=== PATIENT | female | born 1965 | race Caucasian/White ===

== ENCOUNTER 2018-11-23 19:14 | Emergency (ER) | payer BC ==
[2018-11-23] MEDS ORDERED: Lidocaine 2% VISCOUS* 15 ML UDC PO ONE (20:11)
[2018-11-23] MEDS ORDERED: Al Hydrox/Mg Hydrox/Simet LIQ* 30 ML UDC PO ONE (20:11)
--- NOTE | 2018-11-23 20:14 | ED ---
HPI Chest Pain - HPI Summary HPI Summary: Pt is a 53 y/o F presenting to the ED with a chief complaint of chest pain onset 1830 today toward the epigastric region, more so on the L side than R, and it slightly radiates to her back. She reports nausea. She denies vomiting. She tried monet seltzer which did not help. She denies smoking and fhx of cardiac issues. - History of Current Complaint Chief Complaint: EDChestPainROMI Time Seen by Provider: 11/23/18 20:01 Hx Obtained From: Patient Onset/Duration: Started Hours Ago, Still Present Timing: Constant, Lasting Hours Initial Severity: Severe Current Severity: Severe Pain Intensity: 8 Pain Scale Used: 0-10 Numeric Chest Pain Location: Lower Sternal Chest Pain Radiates: Yes Chest Pain Radiates To:: Back Character: Burning Aggravating Factor(s): Nothing Alleviating Factor(s): Nothing Associated Signs and Symptoms: Positive: Chest Pain, Nausea, Back Pain. Negative: Vomiting - Allergy/Home Medications Allergies/Adverse Reactions: Allergies Allergy/AdvReac Type Severity Reaction Status Date / Time No Known Allergies Allergy Verified 11/23/18 19:24 Home Medications: Home Medications ARIPiprazole [Aripiprazole] 11/23/18 [History] FLUoxetine CAP* [Prozac CAP*] 11/23/18 [History] Montelukast Sodium 11/23/18 [History Confirmed 11/23/18] PMH/Surg Hx/FS Hx/Imm Hx Previously Healthy: Yes Endocrine/Hematology History: Denies: Hx Diabetes Cardiovascular History: Denies: Hx Hypertension Infectious Disease History: No Infectious Disease History: Denies: Traveled Outside the [place] in Last 30 Days - Family History Known Family History: Negative: Cardiac Disease - Social History Occupation: Unemployed Lives: With Family Hx Tobacco Use: No Smoking Status (MU): Never Smoked Tobacco Review of Systems Positive: Chest Pain Positive: Nausea. Negative: Vomiting Positive: Myalgia - some associated back pain All Other Systems Reviewed And Are Negative: Yes Physical Exam - Summary Physical Exam Summary: VITAL SIGNS: Reviewed. GENERAL: Patient is a well-developed and nourished female who is lying comfortable in the stretcher. Patient is not in any acute respiratory distress. HEAD AND FACE: No signs of trauma. No ecchymosis, hematomas or skull depressions. No sinus tenderness. EYES: PERRLA, EOMI x 2, No injected conjunctiva, no nystagmus. EARS: Hearing grossly intact. Ear canals and tympanic membranes are within normal limits. MOUTH: Oropharynx within normal limits. NECK: Supple, trachea is midline, no adenopathy, no JVD, no carotid bruit, no c- spine tenderness, neck with full ROM. CHEST: Symmetric, no tenderness at palpation LUNGS: Clear to auscultation bilaterally. No wheezing or crackles. CVS: Regular rate and rhythm, S1 and S2 present, no murmurs or gallops appreciated. ABDOMEN: Epigastric tenderness. No signs of distention. No rebound no guarding, and no masses palpated. Bowel sounds are normal. EXTREMITIES: FROM in all major joints, no edema, no cyanosis or clubbing. NEURO: Alert and oriented x 3. No acute neurological deficits. Speech is normal and follows commands. SKIN: Dry and warm Triage Information Reviewed: Yes Vital Signs On Initial Exam: Initial Vitals Temp Pulse Resp BP Pulse Ox 97.8 F 67 16 175/97 97 11/23/18 19:22 11/23/18 19:22 11/23/18 19:22 11/23/18 19:22 11/23/18 19:22 Vital Signs Reviewed: Yes Diagnostics - Vital Signs Vital Signs Temp Pulse Resp BP Pulse Ox 11/23/18 19:22 97.8 F 67 16 175/97 97 - Laboratory Result Diagrams: 11/23/18 20:20 11/23/18 20:20 Lab Statement: Any lab studies that have been ordered have been reviewed, and results considered in the medical decision making process. Chest Pain Course/Dx - Course Course Of Treatment: Pt is a 53 y/o F presenting to the ED with a chief complaint of chest pain onset 1829 today in the epigastric region, more so on the L side than R, and it slightly radiates to her back. She reports nausea. She denies vomiting. An EKG at 191 shows NSR 66bpm, nml axis, nml interval, and no ischemic changes. The pt's first troponin is 0.00. The pt's second troponin is also 0.00. The pt will be sent home with dx including chest pain and HTN, with instructions to get a cardiac stress test done in outpatient as well as instructions to f/u with her primary care provider. - Diagnoses Provider Diagnoses: Chest pain, HTN (hypertension) Discharge - Sign-Out/Discharge Documenting (check all that apply): Patient Departure Patient Received Moderate/Deep Sedation with Procedure: No - Discharge Plan Condition: Stable Disposition: HOME Prescriptions: Lisinopril TAB* [Prinivil TAB 5 MG*] 5 mg PO DAILY #30 tab Referrals: [facility] [Outside] Additional Instructions: Please take your prescribed medications as instructed. Follow up with your primary care provider within the next 2-3 days. Follow up with cardiology within the next 2-3 days to schedule a cardiac stress test as well as discuss your HTN medication. - Attestation Statements Document Initiated by Scribe: Yes Documenting Scribe: Leslie Barros Provider For Whom Pepito is Documenting (Include Credential): Jan Damon MD. Scribe Attestation: Leslie Ruff, scribed for Jan Damon MD. on 11/23/18 at 2355. Status of Scribe Document: Ready
[2018-11-23 20:26] LABS: ABS Basophils 0 10^3/ul (0-0.2); ABS Lymphocytes 2.8 10^3/ul (1.0-4.8); ABS Monocytes 0.7 10^3/ul (0-0.8); ABS Neutrophils 5.2 10^3/ul (1.5-7.7); ABS Nucleated RBC 0 10^3/ul; Eosinophil % 10.1 %; Hematocrit 38 % (33-41); Hemoglobin 12.7 g/dL (12.0-16.0); Mean Corpuscular HGB Conc 34 g/dL (31-36); Mean Corpuscular Hemoglobin 30 pg (27-31); Mean Corpuscular Volume 89 fL (80-97); Mean Platelet Volume 7.9 fL (7.4-10.4); Nucleated Red Blood Cells % 0; Platelet Count 253 10^3/uL (150-450); Red Blood Count 4.24 10^6 /uL (3.70-4.87); Red Cell Distribution Width 15 % (10.5-15); White Blood Count 9.7 10^3/uL (3.5-10.8)
[2018-11-23 20:37] LABS: Activated Partial Thrombo Time 29.9 seconds (26.0-36.3); INR 0.94 (0.77-1.02)
[2018-11-23] MEDS ORDERED: cloNIDine TAB* 0.1 MG ONE (20:42)
[2018-11-23] MEDS ORDERED: cloNIDine TAB* 0.1 MG PO ONE (20:42)
[2018-11-23 20:53] LABS: Albumin 4.3 g/dL (3.2-5.2); Albumin/Globulin Ratio 2.2 (1-3); BUN/Creatinine Ratio 18.6 (8-20); Calcium 9.4 mg/dL (8.6-10.3); EGFR African American 105.5 (>60); EGFR Non-African American 87.2 (>60); Total Bilirubin 0.4 mg/dL (0.2-1.0); Total Protein 6.3 g/dL (6.4-8.9)
[2018-11-23 23:53] VITALS: BP 158/99
== END 2018-11-24 00:18 | disposition home or self-care (01) ==
LOC: ED 19:14
DX: R07.9 Chest pain, unspecified (principal); I10 Essential (primary) hypertension
CPT/HCPCS: 36415; 80053; 82150; 83605; 83690; 83735; 84484; 85025; 85610; 85730; 93005; 99283; A9270-GY